=== PATIENT | female | born 1930 | race Caucasian/White ===

== ENCOUNTER 2018-05-16 11:49 | Inpatient (IN) ==
[2018-05-16 12:31] LABS: Basophils # 0.1 10*3/uL (0.0-0.2); Basophils % 0.9 % (0.0-0.8); Eosinophils # 0.2 10*3/uL (0.0-0.87); Eosinophils % 2.7 % (0.00-10.9); Hematocrit 31.2 VOL% (35.7-47.0); Hemoglobin 9.7 GM/DL (12.0-16.0); Immature Granulocytes % 0.5 %; Immature Granulocytes Absolute 0.03 #; Lymphocytes % 14.7 % (21.3-54.2); Mean Corpuscular HGB Conc 31.1 GM/DL (32-36); Mean Corpuscular Hemoglobin 30 PG (27-34); Mean Corpuscular Volume 96.6 FL (87-102); Mean Platelet Volume 10.7 FL (9.6-12.0); Monocytes # 0.8 10*3/uL (0.11-0.8); Monocytes % 12.4 % (1.7-12.7); Neutrophils # 4.6 10*3/uL (1.4-7.4); Neutrophils % 68.8 % (38.7-73.9); Platelet Count 203 T/CUMM (130-400); Red Blood Count 3.23 MC/CUMM (3.8-5.5); Red Cell Distribution Width 14.5 % (9.3-17.3); White Blood Count 6.6 T/CUMM (4-12)
[2018-05-16 12:39] LABS: INR 2.4; Partial Thromboplastin Time 40.6 SECS (0-40)
[2018-05-16 12:45] LABS: PT Patient Result 26.1 SECS
[2018-05-16 14:09] LABS: Alanine Aminotransferase 19 U/L (13-56); Alkaline Phosphatase 76 U/L (45-117); Aspartate Amino Transferase 17 U/L (0-37); Bilirubin,Total < 0.39 MG/DL (0.2-1.0); Blood Urea Nitrogen 109 MG/DL (7-18); Calcium 8.1 MG/DL (8.5-10.1); Glucose 203 MG/DL (74-106); Osmolality,Calculated 305.4 MOS/KG (273-304); Potassium 5.4 MMOL/L (3.5-5.1); Sodium 133 MMOL/L (136-145)
[2018-05-16] MEDS ORDERED: SODIUM CHLORIDE 0.9% 1,000 ML IV STA (14:40)
[2018-05-16] MEDS ORDERED: LEVOFLOXACIN INJ 500 MG in PREMIX 1 EACH IV STA (14:41)
[2018-05-16] MEDS ORDERED: ONDANSETRON 4 MG/2 ML VIAL IV PRN (15:17)
[2018-05-16] MEDS ORDERED: ACETAMINOPHEN 325 MG TABLET PO PRN (15:17)
[2018-05-16 17:38] LABS: Apearance,Urine CLEAR (Clear); Bilirubin,Urine Negative (Negative); Blood, Urine Negative (Negative); Glucose,Urine (UA) Negative (Negative); Ketones,Urine Negative (Negative); Nitrite,Urine Negative (Negative); Protein,Urine Negative; RBC,Urine 1 /HPF (0-4); Squamous Epithelial Cell,Urine Occasional /HPF (0-10); Urine Color Straw (Yellow); Urine Specific Gravity 1.006 (1.001-1.035); Urine Urobilinogen < 2.0 EU/DL (0.2-1.0)
[2018-05-16] MEDS: SODIUM CHLORIDE 0.9% 1,000 ML IV SCH (17:38)
[2018-05-16] MEDS: WARFARIN 5 MG TABLET PO SCH (19:00)
[2018-05-16] MEDS: MAGNESIUM OXIDE 400 MG TABLET PO SCH (20:28)
[2018-05-17 06:33] LABS: INR 2.8
[2018-05-17 06:34] LABS: PT Patient Result 29.8 SECS
[2018-05-17 06:47] LABS: Basophils % 0.3 % (0.0-0.8); Eosinophils # 0.2 10*3/uL (0.0-0.87); Eosinophils % 2.8 % (0.00-10.9); Hematocrit 25.1 VOL% (35.7-47.0); Immature Granulocytes % 0.5 %; Immature Granulocytes Absolute 0.03 #; Lymphocytes # 0.9 10*3/uL (1.4-4.0); Mean Corpuscular HGB Conc 31.9 GM/DL (32-36); Mean Corpuscular Hemoglobin 30 PG (27-34); Mean Corpuscular Volume 95.4 FL (87-102); Mean Platelet Volume 11.3 FL (9.6-12.0); Monocytes # 0.7 10*3/uL (0.11-0.8); Monocytes % 11.7 % (1.7-12.7); Neutrophils % 68.7 % (38.7-73.9); Platelet Count 186 T/CUMM (130-400); Red Blood Count 2.63 MC/CUMM (3.8-5.5); Red Cell Distribution Width 14.6 % (9.3-17.3); White Blood Count 5.8 T/CUMM (4-12)
[2018-05-17 06:49] LABS: Calcium 7.7 MG/DL (8.5-10.1); Osmolality,Calculated 308.5 MOS/KG (273-304); Potassium 4.9 MMOL/L (3.5-5.1); Risk Ratio 3.91; Thyroid Stimulating Hormone 1.27 uIU/ml (0.358-3.74); VLDL CHOLESTEROL 19.2 MG/DL
[2018-05-17] MEDS: MAGNESIUM OXIDE 400 MG TABLET PO SCH ×2 (08:08→21:34)
[2018-05-17] MEDS: ASPIRIN EC 81 MG TABLET PO SCH (08:08)
[2018-05-17] MEDS: FUROSEMIDE 20 MG TABLET PO SCH (08:09)
[2018-05-17] MEDS: PANTOPRAZOLE 40 MG TABLET PO SCH (08:09)
[2018-05-17] MEDS: METOPROLOL SUCCINATE XL 100 MG TABLET PO SCH (08:09)
[2018-05-17] MEDS: OLMESARTAN 5 MG TABLET PO SCH (08:09)
[2018-05-17] MEDS: sitaGLIPtin 25 MG TABLET PO SCH (11:24)
[2018-05-17] MEDS: INSULIN GLARGINE 100 UNIT/ML SUBCUT SCH (11:24)
[2018-05-17] MEDS: DRONEDARONE 400 MG TABLET PO SCH ×2 (11:34→21:34)
[2018-05-17] MEDS: OFLOXACIN 0.3% OPH SOLN 10 ML BOTTLE LEFT EYE SCH ×2 (14:43→21:35)
[2018-05-17] MEDS ORDERED: WARFARIN 2.5 MG TABLET PO SCH (18:00)
[2018-05-17] MEDS: SODIUM CHLORIDE 0.9% 1,000 ML IV SCH (21:33)
[2018-05-17] MEDS: COENZYME Q10 100 MG CAPSULE PO SCH (21:34)
[2018-05-17] MEDS: MULTIVITAMIN (OCUVITE) TABLET PO SCH (21:34)
[2018-05-17] MEDS: OMEGA 3 ACID ETHYL ESTERS 1 GM CAPSULE PO SCH (21:37)
[2018-05-18 05:14] LABS: Basophils % 0.4 % (0.0-0.8); Eosinophils # 0.2 10*3/uL (0.0-0.87); Eosinophils % 2.1 % (0.00-10.9); Hematocrit 24.9 VOL% (35.7-47.0); Hemoglobin 7.6 GM/DL (12.0-16.0); Immature Granulocytes % 0.4 %; Immature Granulocytes Absolute 0.03 #; Lymphocytes # 0.8 10*3/uL (1.4-4.0); Lymphocytes % 11.6 % (21.3-54.2); Mean Corpuscular HGB Conc 30.5 GM/DL (32-36); Mean Corpuscular Hemoglobin 30 PG (27-34); Mean Corpuscular Volume 96.9 FL (87-102); Mean Platelet Volume 10.9 FL (9.6-12.0); Monocytes # 0.9 10*3/uL (0.11-0.8); Monocytes % 12.6 % (1.7-12.7); Neutrophils # 5.3 10*3/uL (1.4-7.4); Neutrophils % 72.9 % (38.7-73.9); Platelet Count 183 T/CUMM (130-400); Red Blood Count 2.57 MC/CUMM (3.8-5.5); Red Cell Distribution Width 14.5 % (9.3-17.3); White Blood Count 7.2 T/CUMM (4-12)
[2018-05-18 05:25] LABS: INR 2.7; PT Patient Result 28.7 SECS
[2018-05-18 05:32] LABS: Calcium 7.3 MG/DL (8.5-10.1); Osmolality,Calculated 302.5 MOS/KG (273-304); Potassium 4.8 MMOL/L (3.5-5.1)
[2018-05-18] MEDS: SODIUM CHLORIDE 0.9% 1,000 ML IV SCH (08:17)
[2018-05-18] MEDS: COENZYME Q10 100 MG CAPSULE PO SCH ×2 (08:20→21:21)
[2018-05-18] MEDS: DRONEDARONE 400 MG TABLET PO SCH ×2 (08:20→21:21)
[2018-05-18] MEDS: OLMESARTAN 5 MG TABLET PO SCH (08:20)
[2018-05-18] MEDS: MAGNESIUM OXIDE 400 MG TABLET PO SCH ×2 (08:20→23:36)
[2018-05-18] MEDS: ASPIRIN EC 81 MG TABLET PO SCH (08:21)
[2018-05-18] MEDS: PANTOPRAZOLE 40 MG TABLET PO SCH (08:21)
[2018-05-18] MEDS: METOPROLOL SUCCINATE XL 100 MG TABLET PO SCH (08:21)
[2018-05-18] MEDS: INSULIN GLARGINE 100 UNIT/ML SUBCUT SCH (08:21)
[2018-05-18] MEDS: FUROSEMIDE 20 MG TABLET PO SCH (08:21)
[2018-05-18] MEDS: OMEGA 3 ACID ETHYL ESTERS 1 GM CAPSULE PO SCH ×2 (08:21→21:21)
[2018-05-18] MEDS: sitaGLIPtin 25 MG TABLET PO SCH (08:21)
[2018-05-18] MEDS: MULTIVITAMIN (OCUVITE) TABLET PO SCH ×2 (08:21→21:21)
[2018-05-18] MEDS: OFLOXACIN 0.3% OPH SOLN 10 ML BOTTLE LEFT EYE SCH ×3 (08:25→21:22)
[2018-05-18 08:56] LABS: Hematocrit 26.2 VOL% (35.7-47.0); Hemoglobin 8.1 GM/DL (12.0-16.0)
[2018-05-18] MEDS: WARFARIN 5 MG TABLET PO SCH (17:19)
[2018-05-19] MEDS: SODIUM CHLORIDE 0.9% 1,000 ML IV SCH ×2 (00:04→08:20)
[2018-05-19 05:47] LABS: INR 2.6
[2018-05-19] MEDS ORDERED: FERROUS SULFATE 325 MG TABLET PO SCH (09:00)
[2018-05-19] MEDS: OMEGA 3 ACID ETHYL ESTERS 1 GM CAPSULE PO SCH (10:41)
[2018-05-19] MEDS: MULTIVITAMIN (OCUVITE) TABLET PO SCH (10:41)
[2018-05-19] MEDS: METOPROLOL SUCCINATE XL 100 MG TABLET PO SCH (10:42)
[2018-05-19] MEDS: sitaGLIPtin 25 MG TABLET PO SCH (10:42)
[2018-05-19] MEDS: FUROSEMIDE 20 MG TABLET PO SCH (10:42)
[2018-05-19] MEDS: PANTOPRAZOLE 40 MG TABLET PO SCH (10:43)
[2018-05-19] MEDS: COENZYME Q10 100 MG CAPSULE PO SCH (10:43)
[2018-05-19] MEDS: DRONEDARONE 400 MG TABLET PO SCH (10:43)
[2018-05-19] MEDS: ASPIRIN EC 81 MG TABLET PO SCH (10:43)
[2018-05-19] MEDS: OFLOXACIN 0.3% OPH SOLN 10 ML BOTTLE LEFT EYE SCH (10:49)
[2018-05-19] MEDS: MAGNESIUM OXIDE 400 MG TABLET PO SCH (10:49)
[2018-05-19] MEDS: INSULIN GLARGINE 100 UNIT/ML SUBCUT SCH (10:53)
[2018-05-19 13:34] VITALS: BP 158/92
== END 2018-05-19 13:30 | disposition home health service (06) | DRG 684 ==
LOC: N.ED 11:49 → N.EDINP 15:16 → N.5E 18:24
PROVIDERS: ADMIT Internal Medicine Geriatric Medicine; ATTEND Internal Medicine Geriatric Medicine